=== PATIENT | female | born 1985 | race Caucasian/White ===

== ENCOUNTER 2018-05-04 15:40 | Inpatient (IN) | payer BC ==
[2018-05-04] VITALS (17 sets, daily range): BP systolic 93–138; BP diastolic 60–86; PULSE 80–131; TEMP 98.3–99.2
[~2018-05-04] VITALS: Ht 160 cm; Wt 97.3 kg
[2018-05-04] MEDS ORDERED: PRENATAL1 TA7 PO (16:10)
[2018-05-04 17:03] LABS: BASO % 0.3 % (0.0-2.0); EOS % 0.4 % (0-4.0); GRAN # 6.8 (1.4-6.5); GRAN % 71.7 % (42.2-75.2); HEMATOCRIT 38.8 % (37.0-47.0); HEMOGLOBIN 13.4 g/dl (12.5-16.0); LYMPH # 1.8 (1.2-3.4); LYMPH % 18.9 % (20.0-51.0); MEAN CELL VOLUME 94 fl (80.0-100.0); MEAN CORPUSCULAR HEMOGLOBIN 33 pg (27.0-31.0); MEAN CORPUSCULAR HGB CONC 35 g/dl (33.0-37.0); MEAN PLATELET VOLUME 11.9 fl (7.4-10.4); MONO # 0.8 (0.1-0.6); MONO % 7.9 % (1.7-9.3); PLATELET COUNT 190 K/mm3 (130-400); RED BLOOD COUNT 4.11 M/mm3 (4.10-5.30); REDCELL DISTRIBUTION WIDTH-CV 13.1 % (11.5-14.5)
[2018-05-05 00:45] VITALS: BP 124/75; PULSE 103; TEMP 97.9
[2018-05-05 03:15] VITALS: BP 128/72; PULSE 99
[2018-05-05 07:48] LABS: BASO % 0.3 % (0.0-2.0); EOS % 0.1 % (0-4.0); GRAN # 9.5 (1.4-6.5); GRAN % 79.3 % (42.2-75.2); LYMPH # 1.5 (1.2-3.4); LYMPH % 12.6 % (20.0-51.0); MEAN CELL VOLUME 95 fl (80.0-100.0); MEAN CORPUSCULAR HGB CONC 35 g/dl (33.0-37.0); MONO # 0.9 (0.1-0.6); MONO % 7.3 % (1.7-9.3); PLATELET COUNT 161 K/mm3 (130-400); REDCELL DISTRIBUTION WIDTH-CV 13.3 % (11.5-14.5)
[2018-05-05 07:52] LABS: HEMATOCRIT 29.4 % (37.0-47.0); HEMOGLOBIN 10.2 g/dl (12.5-16.0); MEAN CORPUSCULAR HEMOGLOBIN 33 pg (27.0-31.0)
[2018-05-05 07:55] VITALS: BP 133/75; PULSE 96; TEMP 98.8
[2018-05-05 17:18] VITALS: BP 135/88; PULSE 102; TEMP 98.4
[2018-05-05 19:15] VITALS: BP 138/83; PULSE 100; TEMP 98.3
== END 2018-05-05 23:00 | disposition home or self-care (01) | DRG 774 ==
LOC: LDRO 15:40 → LDR 16:10 → OB 05-05
PROVIDERS: Student in an Organized Health Care Education/Training Program
PROC: 10E0XZZ Delivery of Products of Conception, External Approach (ICD-10-PCS; principal; 2018-05-04)
PROC: 0KQM0ZZ Repair Perineum Muscle, Open Approach (ICD-10-PCS; 2018-05-04)
PROC: 0UQGXZZ Repair Vagina, External Approach (ICD-10-PCS; 2018-05-04)
DX: O34.13 Maternal care for benign tumor of corpus uteri, third trimester (principal); O90.1 Disruption of perineal obstetric wound; O99.820 Streptococcus B carrier state complicating pregnancy; O70.1 Second degree perineal laceration during delivery; Z3A.40 40 weeks gestation of pregnancy; Z37.0 Single live birth
CPT/HCPCS: J1885; J2250; J2405; J2540; J2590; J2704; J3010; J7120

== ENCOUNTER 2018-07-25 14:30 | Outpatient (RCR) | payer BC ==
[~2018-07-25 14:30] MED LIST: PRENATAL1 TA7 PO
== END 2018-10-04 | disposition home or self-care (01) ==
LOC: MKS.ESL.PT
DX: R10.2 Pelvic and perineal pain (principal)